=== PATIENT | female | born 1960 | race Caucasian/White ===

== ENCOUNTER → 2024-03-12 11:46 | Outpatient (REF) | payer OTHER, SELFPAY | LOC: RAD 11:46 | PROVIDERS: ATTENDING PHYSICIAN Nurse Practitioner Family | DX: J45.41 Moderate persistent asthma with (acute) exacerbation (principal) | CPT/HCPCS: 71046 ==

== ENCOUNTER → 2025-01-26 13:41 | Outpatient (REF) | payer OTHER, SELFPAY | LOC: HWRAD 13:41 | PROVIDERS: ATTENDING PHYSICIAN Otolaryngology; FAMILY PHYSICIAN Family Medicine | DX: J33.0 Polyp of nasal cavity (principal); J32.4 Chronic pansinusitis | CPT/HCPCS: 70486 ==

== ENCOUNTER → 2025-03-11 12:47 | Outpatient (REF) | payer OTHER, SELFPAY | LOC: WDC 12:47 | PROVIDERS: ATTENDING PHYSICIAN Family Medicine | DX: Z12.31 Encounter for screening mammogram for malignant neoplasm of breast (principal) | CPT/HCPCS: 77063; 77067 ==

== ENCOUNTER → 2025-06-14 12:26 | Outpatient (REF) | payer BC, SELFPAY | LOC: RCS 12:26 | PROVIDERS: FAMILY PHYSICIAN Family Medicine; REFERRING PHYSICIAN Internal Medicine Clinical Cardiac Electrophysiology | DX: G47.34 Idiopathic sleep related nonobstructive alveolar hypoventilation (principal) | CPT/HCPCS: 93306 ==

== ENCOUNTER → 2025-09-07 09:51 | Outpatient (REF) | payer BC, SELFPAY | LOC: WDC 09:51 | PROVIDERS: ATTENDING PHYSICIAN Physician Assistant Medical | DX: N61.0 Mastitis without abscess (principal) | CPT/HCPCS: 76642; 77061; 77065 ==

== ENCOUNTER → 2025-09-14 13:54 | Outpatient (REF) | payer BC, SELFPAY | LOC: MRI 3T 13:54 | PROVIDERS: ATTENDING PHYSICIAN Surgery; FAMILY PHYSICIAN Family Medicine | DX: L53.9 Erythematous condition, unspecified (principal) | CPT/HCPCS: 77049; A9585 ==